=== PATIENT | female | born 1980 | race African-American/Black ===

== ENCOUNTER 2021-05-13 09:26 | Emergency (ER) | payer OTHER ==
[~2021-05-13] VITALS: Ht 162.6 cm; Wt 96.6 kg
[2021-05-13 09:47] VITALS: BP 120/75
[2021-05-13 10:10] LABS: URINE BILIRUBIN NEGATIVE (Negative); URINE BLOOD 3+ (Negative); URINE CLARITY CLOUDY; URINE COLOR RED; URINE GLUCOSE-RANDOM* NEGATIVE (Negative); URINE KETONES NEGATIVE (Negative); URINE LEUKOCYTES-REFLEX NEGATIVE (Negative); URINE NITRITE-REFLEX NEGATIVE (Negative); URINE PROTEIN (DIPSTICK) 1+ (Negative); URINE SPECIFIC GRAVITY 1.015 (1.005-1.035)
[2021-05-13 10:13] LABS: CASTS None Seen /LPF (None Seen); CRYSTALS None Seen /LPF (None Seen); SQUAMOUS 4-10 Moderate /LPF (0-3); URINE RBC >20 Many /HPF (NONE SEEN)
[2021-05-13 10:15] LABS: BACTERIA-REFLEX 1-9 Few /HPF (None Seen); URINE WBC-REFLEX 0-5 Rare /HPF (0-5)
[2021-05-13] MEDS ORDERED: CEPHALEXIN500 MG PO ×2 (10:21→10:49)
[2021-05-13] MEDS ORDERED: BACTRIM DS TAB1 EACH PO ×2 (10:21→10:49)
== END 2021-05-13 10:28 | disposition home or self-care (01) ==
LOC: ER 09:26
PROVIDERS: Emergency Medicine
DX: L03.112 Cellulitis of left axilla (principal); R31.9 Hematuria, unspecified; N30.90 Cystitis, unspecified without hematuria; L73.1 Pseudofolliculitis barbae